=== PATIENT | male | born 1970 | race Caucasian/White ===

== ENCOUNTER 2020-10-30 16:52 | Emergency (ER) | payer MEDICARE ==
[~2020-10-30 16:52] MED LIST: ACTOS45 MG PO; BACLOFEN5 MG PO; CRESTOR20 MG PO; ECOTRIN81 MG PO; JANUVIA100 MG PO; KLONOPIN1 MG PO; LEVEMIR100 UNIT/1 SQ; LOPRESSOR 25 MG25 MG PO; LOPRESSOR 50 MG50 MG PO; MOBIC15 MG PO; NEURONTIN 100100 MG PO; NEURONTIN 400400 MG PO; NOVOLOG MI100 UNIT/1 SQ; NOVOLOG100 UNIT/1 SQ; TRICOR145 MG PO; ZESTRIL 40 MG T40 MG PO; ZESTRIL40 MG PO
== END 2020-10-30 17:01 | disposition expired ==
LOC: ER1 16:52 → EDBD 16:52 → ER1 17:01
DX: I46.9 Cardiac arrest, cause unspecified (principal)
CPT/HCPCS: J0171